=== PATIENT | male | born 1980 | race Caucasian/White ===

== ENCOUNTER → 2018-07-23 10:47 | Outpatient (CLI) | payer BC, SELFPAY ==
[2018-07-23 11:07] LABS: Bacteria Urine None Seen; RBC Urine None Seen (0-5/HPF); WBC Urine None Seen (0-5/HPF)
--- NOTE | 2018-07-23 11:20 | DI.RAD.S_ITS ---
PROCEDURE: XR CHEST 2V INDICATIONS: Chest pain TECHNIQUE: 2 views of the chest were acquired. COMPARISON: [facility], CHEST 2 VIEW, 08/13/2012, 17:10. [facility], CHEST 2 VIEW, 03/29/2013, 11:43. FINDINGS: Surgical changes and devices: None. Lungs and pleura: No pleural effusions or pneumothorax. Lungs are clear. Mediastinum: Mediastinal contours are normal. Heart size is normal. Bones and chest wall: No suspicious bony abnormalities. Soft tissues appear unremarkable. IMPRESSION: No acute cardiopulmonary disease. Dictated by: Josef Isidro M.D. on 07/23/2018 at 12:17 Approved by: Josef Isidro M.D. on 07/23/2018 at 12:18
[2018-07-23 12:24] LABS: Add Manual Diff / Slide Review NO; Basophils Percent Auto 0.2 % (0-2); Eosinophils Percent Auto 2.5 % (2-4); Hematocrit 41.3 % (41-53); Hemoglobin 14.7 g/dL (13.5-17.5); Lymphocytes Percent Auto 40.7 % (25-40); Mean Corpuscular HGB Conc 35.6 % (30-36); Mean Corpuscular Hemoglobin 31.2 PG (26-34); Mean Corpuscular Volume 87.7 fL (80-100); Monocytes Percent Auto 6.9 % (3-14); Neutrophils Absolute Auto 2900 /uL (3000-5900); Neutrophils Percent Auto 49.7 % (50-75); Platelet Count 181 X10^3/uL (150-400); Red Blood Cell Count 4.71 X10^6/uL (4.5-5.9); Red Cell Distribution Width 13.3 % (11.6-14.8); White Blood Cell Count 5.9 X10^3/uL (4.5-11.0)
[2018-07-23 13:05] LABS: Appearance Urine UA CLEAR; Bilirubin Urine UA NEGATIVE (NEGATIVE); Color Urine UA YELLOW; Glucose Urine UA NEGATIVE (Normal); Ketones Urine UA NEGATIVE (NEGATIVE); Leukocyte Esterase Urine UA NEGATIVE (NEGATIVE); Nitrite Urine UA Negative (Negative); Occult Blood Urine UA NEGATIVE (Negative); Protein Urine UA 1+ (Negative); Specific Gravity Urine UA 1.015 (1.000-1.035); Urobilinogen Urine UA 0.2 E.U./dL (0.2)
[2018-07-23 13:06] LABS: Culture Indicated Urine Cult Not Indicated; Urine Comments Microscopic Normal
[2018-07-23 13:12] LABS: Alanine Aminotransferase 51 IU/L (21-72); Albumin Globulin Ratio 1.8 (1.0-2.8); Alkaline Phosphatase 44 U/L (38-126); Aspartate Aminotransferase 31 IU/L (17-59); Bilirubin Total 1.3 mg/dL (0.2-1.3); Blood Urea Nitrogen 23 mg/dL (9-20); Calcium 10.5 mg/dL (8.4-10.2); Carbon Dioxide 27 mmol/L (22-32); Chloride 102 mmol/L (98-107); Estimated Glomerular Filt Rate > 60.0 mL/min (>60); Globulin 2.8 g/dL (1.7-4.1); Glucose 84 mg/dL (70-100); HEMOLYSIS < 15 (0-50); Potassium 4.5 mmol/L (3.4-5.1); Sodium 144 mmol/L (137-145); Total Protein 7.8 g/dL (6.3-8.2)
[2018-07-23 13:40] LABS: TSH w/ Reflex to FT4 2.12 uIU/mL (0.47-4.68)
[2018-07-23 14:14] LABS: Folate > 20.0 ng/mL (2.76-20.0); Vitamin B12 583 pg/mL (239-931)
[2018-07-30 10:56] LABS: Rapid Plasma Reagin NON-REACTIVE
== END ==
PROVIDERS: Visit Provider Internal Medicine
DX: R07.9 Chest pain, unspecified (principal)
CPT/HCPCS: 36415; 71046; 80053; 81001; 82607; 82746; 84443; 85025; 86592

== ENCOUNTER → 2018-07-30 10:16 | Outpatient (CLI) | payer BC, SELFPAY ==
[2018-07-31 12:35] LABS: Ionized Calcium 5.3 mg/dL (4.8-5.6)
== END ==
PROVIDERS: Visit Provider Internal Medicine
DX: E83.52 Hypercalcemia (principal)
CPT/HCPCS: 36415; 82330

== ENCOUNTER → 2019-11-03 13:03 | Outpatient (CLI) | payer BC, SELFPAY ==
--- NOTE | 2019-11-03 14:44 | DI.RAD.S_ITS ---
PROCEDURE: XR CHEST 2V INDICATIONS: r/o pneumonia TECHNIQUE: 2 views of the chest were acquired. COMPARISON: [facility], , XR CHEST 2V, 07/23/2018, 11:01. FINDINGS: Surgical changes and devices: None. Lungs and pleura: Lungs are clear. No pleural effusions or pneumothorax. Mediastinum: Mediastinal contours are normal. Heart size is normal. Bones and chest wall: No suspicious bony abnormalities. Soft tissues appear unremarkable. IMPRESSION: No evidence acute pulmonary process. Dictated by: Josr Collins M.D. on 11/03/2019 at 14:50 Approved by: Josr Collins M.D. on 11/03/2019 at 14:51
== END ==
PROVIDERS: PCP Physician Assistant; Visit Provider Physician Assistant
DX: J06.9 Acute upper respiratory infection, unspecified (principal); J40 Bronchitis, not specified as acute or chronic
CPT/HCPCS: 71046

== ENCOUNTER → 2022-04-19 15:21 | Outpatient (CLI) | payer BC, SELFPAY ==
[2022-04-19 16:37] LABS: COVID-19 CEPHEID PCR (VTM/NP) Negative (Negative)
== END ==
PROVIDERS: PCP Physician Assistant; Visit Provider Nurse Practitioner Family
DX: R09.81 Nasal congestion (principal); Z20.822 Contact with and (suspected) exposure to COVID-19
CPT/HCPCS: U0003; U0005

== ENCOUNTER 2025-01-28 16:50 | Emergency (ER) | payer BC, SELFPAY ==
[2025-01-28 16:59] VITALS: BP 133/63; PULSE 88; RESP 20; TEMP 37; O2SAT 97; BMI 33.5
[2025-01-28 17:24] LABS: Add Manual Diff / Slide Review NO; Basophils Absolute Auto 0 /uL (0-100); Basophils Percent Auto 0.4 % (0-2); Eosinophils Absolute Auto 200 /uL (0-450); Eosinophils Percent Auto 1.9 % (2-4); Hematocrit 43.4 % (41-53); Lymphocytes Absolute Auto 2500 /uL (1100-4500); Lymphocytes Percent Auto 25.3 % (25-40); Mean Corpuscular HGB Conc 34.6 % (30-36); Mean Corpuscular Hemoglobin 30.8 PG (26-34); Monocytes Absolute Auto 800 /uL (0-900); Monocytes Percent Auto 7.7 % (3-14); Neutrophils Absolute Auto 6400 /uL (1500-7000); Neutrophils Percent Auto 64.7 % (50-75); Platelet Count 218 X10^3/uL (150-400); Red Blood Cell Count 4.88 X10^6/uL (4.5-5.9); Red Cell Distribution Width 13.4 % (11.6-14.8); White Blood Cell Count 9.8 X10^3/uL (4.5-11.0)
[2025-01-28 17:34] LABS: Alanine Aminotransferase 48 IU/L (<50); Albumin 5.2 g/dL (3.5-5.0); Albumin Globulin Ratio 1.9 (1.0-2.8); Alkaline Phosphatase 34 U/L (38-126); Aspartate Aminotransferase 34 IU/L (17-59); BUN Creatinine Ratio 14.4 (6-22); Bilirubin Total 0.9 mg/dL (0.2-1.3); Blood Urea Nitrogen 27 mg/dL (9-20); Calcium 10.4 mg/dL (8.4-10.2); Carbon Dioxide 29 mmol/L (22-32); Chloride 101 mmol/L (98-107); Estimated Glomerular Filt Rate 45 mL/min (>60); Globulin 2.8 g/dL (1.7-4.1); Glucose 130 mg/dL (70-100); HEMOLYSIS < 15 (0-50); Lipase 363 U/L (23-300); Potassium 3.8 mmol/L (3.4-5.1); Sodium 141 mmol/L (137-145)
[2025-01-28 22:00] VITALS: BP 165/95; PULSE 83; RESP 17; TEMP 37.1; O2SAT 100
--- NOTE | 2025-01-28 23:21 | DI.CT.S_ITS ---
PROCEDURE: CT ABDOMEN PELVIS W CON INDICATIONS: lower abd pain x4d, diarrhea x 2. TECHNIQUE: After the administration of intravenous contrast, axial sections acquired from the lung bases to the pubic symphysis. Coronal and sagittal reformats were performed. For radiation dose reduction, the following was used: automated exposure control, adjustment of mA and/or kV according to patient size. COMPARISON: None. FINDINGS: Image quality: Diagnostic. Lower Chest: No significant findings. ABDOMEN: Liver: Enlarged liver with moderate steatosis. Gallbladder: Decompressed gallbladder without stones or wall thickening. Biliary ducts: No biliary dilation. Pancreas: No ductal dilation. Spleen: Mild splenomegaly. Adrenal Glands: No adrenal nodules. Kidneys and Ureters: Symmetric enhancement. No nephrolithiasis or hydronephrosis. No visible mass or cyst requiring follow up. No hydroureter. Stomach and Bowel: Short segment circumferential descending colon mural edema and thickening along with a few impacted diverticula. Adjacent inflammation and thickening of the lateral conal fascia. No extraluminal gas or fluid. Occasional and inflamed diverticula seen in the sigmoid colon. Proximal colon, appendix, small bowel, and stomach are otherwise normal. Peritoneum: No abnormal intraperitoneal fluid. No free air. No drainable fluid collections. Ventral Wall: No significant ventral hernia. Abdominal Nodes: No retroperitoneal or mesenteric adenopathy by size criteria. Vessels: The abdominal aorta, IVC, and portal vein are of normal caliber. PELVIS: Pelvic Organs: Normal. Bladder: No stones or wall thickening. Pelvic Nodes: No enlarged lymph nodes. Miscellaneous: No inguinal hernias are seen. Bones: No aggressive osseous abnormality. Degenerative endplate spurring at L3-4. IMPRESSION: Acute descending colon diverticulitis without complication. Hepatosplenomegaly and moderate hepatic steatosis. Dictated by: Emilee Barrera M.D. on 01/28/2025 at 23:57 Approved by: Emilee Barrera M.D. on 01/29/2025 at 0:01
[2025-01-28] MEDS: SODIUM CHLORIDE 0.9% 1,000 ML 1000 ML IV (23:58)
[2025-01-28 23:59] VITALS: BP 137/82; PULSE 88; RESP 17; TEMP 37.3; O2SAT 98
[2025-01-29 00:05] VITALS: PULSE 87; O2SAT 99
--- NOTE | 2025-01-29 00:14 | ED_ITS ---
HPI - Abdominal Pain General Chief Complaint: Abdominal Pain Stated Complaint: lower abd pain Time Seen by Provider: 01/28/25 23:21 Source: patient, RN notes reviewed and old records reviewed Mode of arrival: Ambulatory Limitations: no limitations History of Present Illness HPI narrative: 44-year-old male history of IgA nephropathy/CKD hypertension with complaint of lower abdominal pain for 4 days bloating and pain. Patient had 2 days of diarrhea which has since improved. Patient denies any fevers. No nausea or vomiting. States bowel movements have normalized. No black or bloody stools. No dysuria urgency or frequency. No back or flank pain. Patient has occasionally had some GI bugs in the past states it felt sort of similar but did not improve. He has not allergy to azithromycin with a rash. Patient states some no major surgeries. No tobacco, occasional alcohol, no recreational drugs. Related Data Home Medications Medication Instructions Recorded Confirmed CA PANTOTHENATE/FOLIC ACID/VIT 1 tab PO Q DAY ##0 12/30/11 03/19/24 (MULTIVITAMIN) lisinopril 40 mg tablet 40 mg PO QDAY ##0 12/30/11 03/19/24 CHOLECALCIFEROL (VITAMIN D3) 2,000 iu PO QDAY ##0 01/10/12 03/19/24 (Vitamin D) allopurinol 300 mg tablet 090 days ##90 01/10/12 03/19/24 atorvastatin 10 mg tablet (Lipitor) 5 mg PO QDAY ##0 08/13/12 03/19/24 metoprolol succinate 100 mg 50 mg PO Q DAY 090 days ##45 03/29/13 03/19/24 tablet,extended release 24 hr fenofibrate 150 mg capsule 150 mg PO DAILY 10/29/19 03/19/24 Previous Rx's Medication Instructions Recorded benzonatate 100 mg capsule 100 mg PO BEDTIME #20 caps 10/29/19 albuterol sulfate 90 mcg/actuation 2 puff inhalation Q4-6H PRN 11/03/19 aerosol inhaler bronchospasm #8.5 grams benzonatate 100 mg capsule 100 mg PO BID PRN cough #20 caps 04/08/22 fluticasone propionate 50 1 spray intranasal Q12H #16 grams 04/08/22 mcg/actuation nasal spray,suspension (Flonase Allergy Relief) benzonatate 200 mg capsule 200 mg PO BID PRN cough #30 caps 03/19/24 ipratropium bromide 21 mcg (0.03 2 spray intranasal BID PRN nasal 03/19/24 %) nasal spray congestion #30 mL amoxicillin 875 mg-potassium 1 tab PO BID #20 tabs 01/29/25 clavulanate 125 mg tablet Allergies Allergy/AdvReac Type Severity Reaction Status Date / Time azithromycin [AZITHROMYCIN] Allergy Severe RASH Verified 03/19/24 09:52 Review of Systems Review of Systems ROS Unobtainable: All systems reviewed & are unremarkable except as noted in HPI and below Patient History Medical History Gout (2009) IgA nephropathy (1996) Kidney failure (1996) Hypertension Hyperlipidemia Surgical History History of repair of anterior cruciate ligament of right knee (2014) Social History Smoking Status: Never smoker Smoking Status: Never smoker Exam Narrative Exam Narrative: GENERAL: Alert and oriented x three, mild distress HEENT: Head normocephalic, atraumatic, EOMI, pupils reactive, face symmetric, moist mucous membranes NECK: Supple, full range of motion CARDIOVASCULAR: Regular rate and rhythm without murmurs, rubs or gallops. RESPIRATORY: Breath sounds equal bilaterally, no wheezes rales or rhonchi. ABDOMEN: Soft, mild lower abdominal tenderness.. Normoactive bowel sounds all 4 quadrants. No guarding or rebound, rigidity, no mass : No CVA tenderness EXTREMITIES: Normal range of motion, no clubbing or edema. Neurovascularly intact NEUROLOGICAL: Cranial nerves II through XII grossly intact. Moving all extremities SKIN: Warm, dry, no petechiae, no rashes or lesions. Initial Vital Signs Initial Vital Signs: Vital Signs Temperature 98.6 F 01/28/25 16:59 Pulse Rate 88 01/28/25 16:59 Respiratory Rate 20 01/28/25 16:59 Blood Pressure 133/63 01/28/25 16:59 Pulse Oximetry 97 01/28/25 16:59 Oxygen Delivery Method Room Air 01/28/25 16:59 Course Orders Ordered: Discontinued Medications Hydrocodone Bitart/Acetaminophen (Hydrocodone/Acet 5/325 Prepack) 1 bottle MISC DIRECTED ONE Stop: 01/29/25 00:35 Last Admin: 01/29/25 00:37 Dose: 1 bottle Documented By: CRISTOBAL Amoxicillin/Clavulanate Potassium (Amoxicillin/Clav 875/125 Mg) 1 tab PO NOW ONE Stop: 01/29/25 00:28 Last Admin: 01/29/25 00:36 Dose: 1 tab Documented By: CRISTOBAL Sodium Chloride (Normal Saline 0.9%) 1,000 mls @ 1,000 mls/hr IV BOLUS ONE Stop: 01/29/25 00:21 Last Infusion: 01/29/25 00:42 Dose: Infused Documented By: Admin: 01/28/25 23:58 Dose: 1,000 mls/hr Documented By: MEGHANA Ondansetron HCl (Ondansetron 4 Mg/2 Ml Inj) 4 mg IV NOW PRN PRN Reason: Nausea And Vomiting Ondansetron HCl (Ondansetron 4 Mg Odt) 4 mg PO NOW PRN PRN Reason: Nausea And Vomiting Vital Signs Vital signs: Vital Signs - 8 hr 01/28/25 16:59 01/28/25 22:00 01/28/25 23:59 Temperature 98.6 F 98.8 F 99.2 F Pulse Rate 88 83 88 Respiratory Rate 20 17 17 Blood Pressure 133/63 165/95 H 137/82 Pulse Oximetry 97 100 98 Oxygen Delivery Method Room Air Room Air Room Air MDM - Abdominal Pain Lab Data 01/28/25 17:04 01/28/25 17:04 Labs: Lab Results 01/28/25 Range/Units 17:04 WBC 9.8 (4.5-11.0) X10^3/uL RBC 4.88 (4.5-5.9) X10^6/uL Hgb 15.0 (13.5-17.5) g/dL Hct 43.4 (41-53) % MCV 89.0 (80-100) fL MCH 30.8 (26-34) PG MCHC 34.6 (30-36) % RDW 13.4 (11.6-14.8) % Plt Count 218 (150-400) X10^3/uL Neut % (Auto) 64.7 (50-75) % Lymph % (Auto) 25.3 (25-40) % [place] % (Auto) 7.7 (3-14) % Eos % (Auto) 1.9 L (2-4) % Baso % (Auto) 0.4 (0-2) % Neut # (Auto) 6400 (1461-5698) /uL Lymph # (Auto) 2500 (6687-3256) /uL [place] # (Auto) 800 (0-900) /uL Eos # (Auto) 200 (0-450) /uL Baso # (Auto) 0 (0-100) /uL Sodium 141 (137-145) mmol/L Potassium 3.8 (3.4-5.1) mmol/L Chloride 101 (98-107) mmol/L Carbon Dioxide 29 (22-32) mmol/L BUN 27 H (9-20) mg/dL Creatinine 1.88 H (0.66-1.25) mg/dL Estimated GFR 45 L (>60) mL/min BUN/Creatinine Ratio 14.4 (6-22) Glucose 130 H (70-100) mg/dL Calcium 10.4 H (8.4-10.2) mg/dL Total Bilirubin 0.9 (0.2-1.3) mg/dL AST 34 (17-59) IU/L ALT 48 (<50) IU/L Alkaline Phosphatase 34 L (38-126) U/L Total Protein 8.0 (6.3-8.2) g/dL Albumin 5.2 H (3.5-5.0) g/dL Globulin 2.8 (1.7-4.1) g/dL Albumin/Globulin Ratio 1.9 (1.0-2.8) Lipase 363 H (23-300) U/L Point of care testing: Urine Dip Bedside Urine Glucose 1000 mg/dl Bedside Urine Bilirubin - Negative Bedside Urine Ketone - Negative Urine Specific [place] 1.015 Bedside Urine Occult Blood - Negative Bedside Urine pH 5.5 Bedside Urine Protein - Negative Bedside Urine Urobilinogen - Negative Bedside Urine Nitrite - Negative Bedside Urine Leukocytes - Negative Esterase MDM Narrative Medical decision making narrative: Labs show normal CBC, chemistries shows creatinine of 1.88 was 1 in 2018 and 1.2 in 2016. BUN 27, electrolytes are otherwise appropriate glucose is 130 calcium is 10.4. Alk-phos is 34 but bilirubin, AST ALT are normal lipase is 363. Point of care urine shows glucose. CT abdomen pelvis acute descending colon diverticulitis without complication hepatosplenomegaly and moderate hepatic steatosis. Patient was nontoxic, well-appearing found to have diverticulitis on CT imaging. Started on oral antibiotics. Reviewed with the patient he was IgA nephropathy sounds like his creatinine is close to his baseline per patient report. He was on a medication currently which he states causes glucose in his urine and it was aware of this. Discharge Plan Departure Patient Disposition: Home Clinical Impression: Diverticulitis Instructions: DI for Diverticulitis Activity Restrictions/Additional Instructions: Your imaging shows acute descending colonic diverticulitis. Your GFR today is 45 with a creatinine of 1.88. Take oral antibiotics until completed. Prescription sent to [facility] on [address] [place] [address] in [place]. You can take acetaminophen up to a 1000 mg every 6 hours needed for pain. If inadequate for pain you can take [place] instead you can take [address] [place] every 6 hours as needed for pain. This medication can make you sleepy do not drive, perform hazardous activities or make any major decisions while taking it. This medication will make you constipated please take a stool softener once to twice daily until stools are soft and regular. Please return for fevers, new or worsening abdominal back or flank pain, vomiting, black or bloody stools or other new or concerning changes. Prescriptions: New amoxicillin-pot clavulanate 875-125 mg tablet 1 tab PO BID Qty: 20 0RF No Action fenofibrate 150 mg capsule 150 mg PO DAILY benzonatate 100 mg capsule 100 mg PO BEDTIME Qty: 20 0RF benzonatate 100 mg capsule 100 mg PO BID PRN (Reason: cough) Qty: 20 0RF fluticasone propionate [Flonase Allergy Relief] 50 mcg/actuation spray,suspension 1 spray intranasal Q12H Qty: 16 0RF Rx Instructions: administer into each nostril benzonatate 200 mg capsule 200 mg PO BID PRN (Reason: cough) Qty: 30 0RF ipratropium bromide 21 mcg (0.03 %) spray,non-aerosol 2 spray intranasal BID PRN (Reason: nasal congestion) Qty: 30 0RF Rx Instructions: administer into each nostril lisinopril 40 MG tablet 40 mg PO QDAY Qty: 0 CA PANTOTHENATE/FOLIC ACID/VIT (MULTIVITAMIN) 1 tab PO Q DAY Qty: 0 allopurinol 300 MG tablet 090 Days Qty: 90 CHOLECALCIFEROL (VITAMIN D3) (Vitamin D) 2,000 iu PO QDAY Qty: 0 atorvastatin [Lipitor] 10 MG tablet 5 mg PO QDAY Qty: 0 metoprolol succinate 100 MG tablet extended release 24 hr 50 mg PO Q DAY 090 Days Qty: 45 albuterol sulfate 90 mcg/actuation HFA aerosol inhaler 2 puff INHALATION Q4-6H PRN (Reason: bronchospasm) Qty: 8.5 0RF Referrals: Daysi Webster PA-C [Primary Care Provider] - Stand Alone Forms: Patient Portal/API/Survey
[2025-01-29 00:30] VITALS: PULSE 89; RESP 18; O2SAT 100
[2025-01-29] MEDS: AMOXICILLIN/CLAV 875/125 MG 1 TAB PO (00:36)
[2025-01-29] MEDS: HYDROCODONE/ACET 5/325 PREPACK 1 BOTTLE MISC (00:37)
== END 2025-01-29 00:47 | disposition home or self-care (01) ==
PROVIDERS: Family Medicine; Emergency Provider Emergency Medicine; PCP Physician Assistant
DX: K57.92 Diverticulitis of intestine, part unspecified, without perforation or abscess without bleeding (principal)
CPT/HCPCS: 74177; 80053; 81003; 83690; 85025; 96360; 99284; Q9967